=== PATIENT | male | born 1980 | race Caucasian/White ===

== ENCOUNTER → 2018-12-08 | Outpatient (CLI) | payer OTHER ==
--- NOTE | 2018-12-08 20:22 | REP ---
CT of the chest without IV contrast for anterior chest wall pain: Helical scanning is performed and sagittal coronal reformats are performed. The sternum is unremarkable. The clavicular heads and costochondral junctions are unremarkable. There are no inflammatory changes or masses in the anterior chest wall. Lung kenney are clear. There is no pleural thickening, particularly anteriorly. There are no pleural effusions. There is no mediastinal or axillary lymphadenopathy. The study is insensitive for hilar lymphadenopathy in the absence of IV contrast. The thoracic aorta is unremarkable. Cardiac size is normal. The the visualized upper abdominal contents are unremarkable. Impression: Negative CT study of the chest. There is no evidence of inflammation, adenopathy or mass, particularly in the anterior chest wall. The sternum is unremarkable. The costochondral junctions are unremarkable. Electronically Signed by Jelani Anderson MD 12/08/2018 08:13 P
== END ==
LOC: M RAD 17:56
PROVIDERS: ATTEND Pain Medicine Interventional Pain Medicine
DX: R07.89 Other chest pain (principal)

== ENCOUNTER 2020-02-15 11:27 | Day surgery (SDC) | payer OTHER ==
[~2020-02-15] VITALS: Ht 188 cm; Wt 104.3 kg
[~2020-02-15 11:27] MED LIST: AMIT10TA PO; AMMO12LO TOP; BUPIVACAINE HCL 0.5% 30 ML VIAL As Ordered ONE; CHLO25TA GT; LIDO5DIS41 TD; LIDOCAINE 1% MDV 20ML VIAL SQ PRN; LIDOCAINE 1% SDV 30ML VIAL As Ordered ONE; LR 1,000 ML IV ONE; MOBI4TAB PO; ceFAZolin SOD 2 GM in IV 1 EA IV ONE; dexameTHASONE 4 MG/ML 1ML VIAL (J1100 PER 1MG) As Ordered ONE
[2020-02-15 13:19] LABS: BLOOD UREA NITROGEN 10 MG/DL (7-18); CALCIUM LEVEL 9.4 MG/DL (8.5-10.1); CARBON DIOXIDE LEVEL 38 MEQ/L (21-32); CHLORIDE LEVEL 97 MEQ/L (98-107); CREATININE FOR GFR 1.31 MG/DL (0.70-1.30); GLOMERULAR FILTRATION RATE > 60.0 (>60); GLUCOSE, FASTING 106 MG/DL (70-100); POTASSIUM SERUM 3.4 MEQ/L (3.5-5.1); SODIUM LEVEL 136 MEQ/L (136-145)
[2020-02-15] MEDS ORDERED: MIDAZOLAM INJ 2MG/2ML VIAL (J2250 PER 1MG) As Ordered ONE (14:12)
[2020-02-15] MEDS ORDERED: propofoL 200 MG/20 ML VIAL As Ordered ONE (14:12)
[2020-02-15] MEDS ORDERED: dexameTHASONE 4 MG/ML 1ML VIAL (J1100 PER 1MG) As Ordered ONE (14:12)
[2020-02-15] MEDS ORDERED: LIDOCAINE 2% 100MG/5ML SDV (FOR ANES.) As Ordered ONE (14:12)
[2020-02-15] MEDS ORDERED: ONDANSETRON 4MG/2ML VIAL As Ordered ONE (14:12)
[2020-02-15] MEDS ORDERED: fentaNYL 100 MCG/2 ML INJECTION (J3010) As Ordered ONE (14:13)
[2020-02-15] MEDS ORDERED: ROCURONIUM BROMIDE 50 MG/5 ML VIAL As Ordered ONE (15:05)
[2020-02-15] MEDS ORDERED: PHENYLephrine HCL 500 MCG/5 ML (100MCG/ML) SYRINGE (J2370) As Ordered ONE (15:21)
[2020-02-15] MEDS ORDERED: ACETAMINOPHEN 1000MG 100ML IV BTL (OFIRMEV) (J0131 PER 10MG) As Ordered ONE (15:48)
[2020-02-15] MEDS ORDERED: SUGAMMADEX SODIUM 500 MG/5 ML VIAL (BRIDION) As Ordered ONE (15:48)
[2020-02-15] MEDS ORDERED: fentaNYL 100 MCG/2 ML INJECTION (J3010) IV PRN (17:00)
[2020-02-15] MEDS ORDERED: ONDANSETRON 4MG/2ML VIAL IV PRN (17:00)
[2020-02-15] MEDS ORDERED: METOCLOPRAMIDE INJ 10MG/2ML VIAL (J2765 PER 1) IV PRN (17:00)
[2020-02-15] MEDS ORDERED: LR 1,000 ML IV SCH (17:00)
[2020-02-15] MEDS ORDERED: oxyCODONE 5MG TAB PO PRN (17:00)
[2020-02-15] MEDS ORDERED: HYDR-3713 PO (17:04)
[2020-02-15 17:55] VITALS: BP 132/77
--- NOTE | 2020-02-15 20:46 | RO ---
OPERATIVE NOTE DATE OF OPERATION: 02/15/2020 PREOPERATIVE DIAGNOSIS: Left ankle ATFL rupture and peroneal tendon tear. POSTOPERATIVE DIAGNOSIS: Left ankle ATFL rupture and peroneal tendon tear. PROCEDURE: Left anterior talofibular ligament repair with internal brace and peroneal tendon repair/peroneal tenodesis. SURGEON: Carroll Jones DPM EDITOR NEWSPAPER: None. ANESTHESIA: General endotracheal anesthesia, preop injection of 20 mL of a 1:1 mixture of 1% lidocaine plain, 1/2% Marcaine plain. ESTIMATED BLOOD LOSS: Minimal. MATERIALS: Arthrex internal brace system with FiberTak suture anchors, 1.3 mm SutureTape, 2-0 and 3-0 Vicryl, #2 Ethibond and 4-0 nylon INJECTABLES: None. COMPLICATION: None. CONDITION: Stable. INDICATIONS: Murray Basilio is a 39-year-old male who sustained an ankle sprain. He underwent months of conservative treatment without improvement. A decision was made to bring him to the operating room for surgical repair. The patient's side and site were identified and marked in the preoperative area. Consent was reviewed and obtained. The risks, complications and alternatives to the procedure were explained to the patient in detail and all questions were answered. PROCEDURE: The patient was brought to the operating room. The patient placed on the operating room table. General endotracheal anesthesia was delivered by the anesthesia team. He was then transferred into a lateral position with a beanbag. Following this, 20 mL of 1% Lidocaine plain were injected into the surgical site. The left foot, ankle and leg were prepped and draped in normal sterile fashion. A tourniquet was applied to the left thigh and inflated at 300 mmHg. Attention was first paid to the anterior talofibular ligament. An incision was made in the anterolateral ankle and fibula. Dissection was carried until the joint capsule was identified. A Bovie was used to maintain hemostasis. The ligament was identified which was ruptured and frayed. Remaining portions that were attached to the fibula were reflected. Following this, the internal brace was inserted to the talus and then the ATFL was reapproximated onto the fibula using the 1.3 mm SutureTapes. After a good reduction of this, the internal brace was inserted over top of the ligament into the fibula according to the ror engineer protocol. Improvement in stability was noted following repair. The ligament was augmented using some of the retinaculum. This was repaired using the 2-0 Vicryl. Subcutaneous closure was performed with 3-0 Vicryl and skin closure with 4-0 nylon. Attention was then paid to the peroneal tendon. A curvilinear incision in the inferior and posterior margin of the fibular was made with a #15 blade. Dissection was carried out until the tendon sheath was identified. An incision was made along the tendon sheath, exposing the tendon. An approximately 6 cm tear in the peroneus brevis was noted which was enveloping the peroneus longus. The peroneus longus was inspected and noted to be generally in good condition without obvious significant tearing. The peroneus brevis tendon was repaired using 2-0 Vicryl and a tenodesis was then performed using the 32 FiberWire. The tendon sheath was then repaired using the 2-0 Vicryl, subcutaneous closure with 3-0 Vicryl and the skin closure was then performed with 4-0 nylon. Sterile dressings were applied. The tourniquet was deflated. A posterior splint was applied. The patient was brought to the PACU with vital signs stable, neurovascular status intact. He will be nonweightbearing to his left foot, crutches and will follow up in office in two days.
--- NOTE | 2020-02-16 22:41 | ECGEPIP ---
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 Electronically Signed on 02-16-2020 22:41:05 EST by Chacho Bradshaw
== END 2020-02-15 18:20 | disposition home or self-care (01) ==
LOC: M SDC 11:27
PROVIDERS: ATTEND Podiatrist Foot & Ankle Surgery
DX: S93.492A Sprain of other ligament of left ankle, initial encounter (principal); X58.XXXA Exposure to other specified factors, initial encounter; Y92.89 Other specified places as the place of occurrence of the external cause; Y93.9 Activity, unspecified; Y99.9 Unspecified external cause status; G47.30 Sleep apnea, unspecified; I10 Essential (primary) hypertension; Z79.899 Other long term (current) drug therapy
CPT/HCPCS: 27658; 27695; 36415; 80048; 93005; C1713; J0131; J0690; J1100; J2250; J2370; J2405; J3010

== ENCOUNTER → 2020-11-14 | Outpatient (REF) ==
[~2020-11-14] MED LIST changes: -AMIT10TA PO; +AMIT10TA7 PO; -BUPIVACAINE HCL 0.5% 30 ML VIAL As Ordered ONE; +HYDR-3713 PO; -LIDOCAINE 1% MDV 20ML VIAL SQ PRN; -LIDOCAINE 1% SDV 30ML VIAL As Ordered ONE; -LR 1,000 ML IV ONE; -ceFAZolin SOD 2 GM in IV 1 EA IV ONE; -dexameTHASONE 4 MG/ML 1ML VIAL (J1100 PER 1MG) As Ordered ONE
--- NOTE | 2020-11-14 13:01 | REP ---
INDICATION: SOB. COMPARISON: None. FINDINGS: The superior mediastinal structures are midline. The cardiac silhouette is unremarkable in size, shape, and position. The diaphragmatic surfaces of the lungs are regular, and the costophrenic angles are clear. The pulmonary kenney are clear. The imaged osseous structures are intact. IMPRESSION: There is no acute cardiopulmonary disease. <Electronically signed by Jeremiah Dia > 11/14/20 [id number]
--- NOTE | 2020-11-14 13:31 | REP ---
INDICATION: SOB. COMPARISON: Comparison is made with today's chest x-ray. TECHNIQUE: Eight views, bilateral rib series. FINDINGS: Multiple bilateral rib views demonstrate intact bilateral ribs without evidence of bony destructive lesion or rib fracture. IMPRESSION: Negative bilateral rib radiographs. <Electronically signed by Mike Ramsey > 11/14/20 [id number]
== END ==
LOC: M PLAIMG 10:46
PROVIDERS: ATTEND Internal Medicine
DX: R06.02 Shortness of breath (principal)

== ENCOUNTER → 2021-03-06 | Outpatient (CLI) | payer OTHER ==
--- NOTE | 2021-03-06 15:58 | REPVR ---
PROCEDURE INFORMATION: Exam: CT Temporal Bones Without Contrast. Exam date and time: 03/06/2021 3:42 PM Age: 40 years old Clinical indication: Other: Hearing loss TECHNIQUE: Imaging protocol: Computed tomography images of the temporal bones without contrast. Radiation optimization: All CT scans at this facility use at least one of these dose optimization techniques: automated exposure control; mA and/or kV adjustment per patient size (includes targeted exams where dose is matched to clinical indication); or iterative reconstruction. COMPARISON: No relevant prior studies available. FINDINGS: Right inner ear: Normal. Right ossicles and middle ear: Normal. The middle ear ossicles are intact. Right external auditory canal: Normal. Right facial nerve canal: Normal. Right jugular foramen: No jugular dehiscence. Right carotid canal: No aberrant carotid canal. Right mastoid air cells: Normal. No mastoid effusions. Left inner ear: Normal. Left ossicles and middle ear: Normal. The middle ear ossicles are intact. Left external auditory canal: Normal. Left facial nerve canal: Normal. Left jugular foramen: No jugular dehiscence. Left carotid canal: No aberrant carotid canal. Left mastoid air cells: Normal. No mastoid effusions. Soft tissues: Unremarkable. IMPRESSION: No acute findings. Electronically signed by: Cy Bautista On 03/06/2021 15:57:58 PM
== END ==
LOC: M RAD 15:30
DX: H91.90 Unspecified hearing loss, unspecified ear (principal)

== ENCOUNTER 2021-10-14 06:40 | Emergency (ER) | payer OTHER ==
[~2021-10-14] VITALS: Ht 188 cm; Wt 106.8 kg
[2021-10-14] MEDS ORDERED: LUNE2TAB23 PO (06:47)
[2021-10-14] MEDS ORDERED: LOPE1CAP5 (06:51)
[2021-10-14] MEDS ORDERED: DICL1GEL3 (06:51)
[2021-10-14] MEDS ORDERED: FLUO20CA22 (06:51)
[2021-10-14] MEDS ORDERED: [UNRECOGNIZED DRUG - CODE] (06:51)
[2021-10-14] MEDS ORDERED: IBUPROFEN 800 MG TAB PO ONE (08:50)
[2021-10-14 09:24] VITALS: BP 156/93
== END 2021-10-14 09:31 | disposition home or self-care (01) ==
LOC: M ED 06:40
DX: K12.2 Cellulitis and abscess of mouth (principal); I10 Essential (primary) hypertension; F17.200 Nicotine dependence, unspecified, uncomplicated; Z79.899 Other long term (current) drug therapy